=== PATIENT | female | born 1960 | race Caucasian/White ===

== ENCOUNTER 2017-10-09 19:24 | Emergency (ER) | payer OTHER ==
[~2017-10-09] VITALS: Ht 157.5 cm; Wt 109.1 kg
[2017-10-09 19:35] VITALS: TEMP 36.7; Ht 157.5 cm; Wt 109.1 kg
[2017-10-09] MEDS ORDERED: FENTANYL CITRATE INJ 50 MCG/1 ML 2 ML VIAL IV STA (19:43)
[2017-10-09] MEDS ORDERED: SODIUM CHLORIDE 0.9% 1000ML 1,000 ML IV STA (19:43)
[2017-10-09] MEDS ORDERED: KETOROLAC TROMETHAMINE 30 MG/ML VIAL IV STA (19:43)
--- NOTE | 2017-10-09 19:59 | EMERGENCY ROOM VISIT NOTE ---
History Report prepared by Buck: Luis Felipe Fuentes Under the Supervision of: Dr. Antoni Rincon M.D. First contact with patient: 19:36 Chief Complaint: KIDNEY STONE Stated Complaint: KIDNEY STONE History of Present Illness The patient is a 57 year old female who presents to the Emergency Room with complaints of worsening right sided flank pain starting about a week ago. She rates her discomfort as a 9/10 in severity. The patient states that she has a history of kidney stones, and she called her doctor, and they told her to come to the ED for evaluation. She is additionally complaining of nausea and vomiting. The patient denies any hematuria, burning with urination, fevers, and chills. She is not currently on any blood thinners. Source of History: patient Onset: a week ago Position: other (right flank) Symptom Intensity: 9/10 Timing: worsening Associated Symptoms: + nausea, + vomiting, No fevers, No chills, No urinary symptoms Review of Systems See HPI for pertinent positives and negatives. A total of ten systems were reviewed and were otherwise negative. Past Medical & Surgical Medical Problems: (1) Kidney stone (2) Urinary problem Family History Cancer Diabetes mellitus Heart disease Hypertension Kidney disease Social History Smoking Status: Never Smoker Alcohol Use: none Marital Status: Housing Status: lives with significant other Occupation Status: employed Current/Historical Medications No Active Prescriptions or Reported Meds Allergies Coded Allergies: No Known Allergies (Verified , NONE, 10/04/16) Physical Exam Vital Signs Date Time Temp Pulse Resp B/P (MAP) Pulse Ox O2 Delivery O2 Flow Rate FiO2 10/09/17 22:07 72 15 95 10/09/17 22:01 137/64 10/09/17 21:52 75 17 97 10/09/17 21:37 65 16 95 10/09/17 21:30 144/82 10/09/17 21:22 76 13 94 10/09/17 21:14 149/101 10/09/17 20:52 83 17 95 10/09/17 20:37 74 17 94 10/09/17 20:31 142/86 10/09/17 20:22 70 94 10/09/17 20:17 153/83 10/09/17 20:15 77 10/09/17 20:09 78 19 97 Room Air 10/09/17 20:04 157/89 10/09/17 19:35 36.7 88 20 174/106 97 Room Air Physical Exam GENERAL: Awake, alert, well-appearing, in no distress HENT: Normocephalic, atraumatic. Oropharynx unremarkable. EYES: Normal conjunctiva. Sclera non-icteric. NECK: Supple. No nuchal rigidity. FROM. No JVD. RESPIRATORY: Clear to auscultation. CARDIAC: Regular rate, normal rhythm. Extremities warm and well perfused. Pulses equal. ABDOMEN: Soft, non-distended. No tenderness to palpation. No rebound or guarding. No masses. RECTAL: Deferred. MUSCULOSKELETAL: There is mild right CVA and right flank tenderness. No peritoneal signs. Chest examination reveals no tenderness. The back is symmetrical on inspection without obvious abnormality. No joint edema. LOWER EXTREMITIES: Calves are equal size bilaterally and non-tender. No edema. No discoloration. NEURO: Normal sensorium. No sensory or motor deficits noted. SKIN: No rash or jaundice noted. Medical Decision & Procedures ER Provider Diagnostic Interpretation: Radiology results as stated below per my review and radiologist interpretation: ABD/PELVIS IV CONTRAST ONLY CLINICAL HISTORY: 57 years-old Female presenting with Flank pain. TECHNIQUE: Multidetector CT of the abdomen and pelvis was performed after the administration of intravenous contrast. IV contrast: 116 mL of Optiray 320. A dose lowering technique was used consistent with the principles of ALARA (as low as reasonably achievable). COMPARISON: 06/03/2009. CT DOSE (mGy.cm): The estimated cumulative dose is 1256.83 mGy.cm. 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 Lung bases: Minimal dependent changes likely atelectasis. Normal heart size. No pericardial or pleural effusion. Liver: Normal morphology. Severe hepatic steatosis. No focal lesion. Patent hepatic vasculature. Biliary: No intrahepatic or extrahepatic biliary ductal dilatation. Gallbladder surgically absent. Pancreas: Normal. Spleen: Normal. Adrenal glands: Normal. Kidneys and ureters: Normal. No hydronephrosis. Bladder: Incompletely evaluated secondary to underdistention. Pelvic organs: Uterus surgically absent. Bowel: Appendix surgically absent. No bowel obstruction. Peritoneal cavity: No free fluid or intraperitoneal gas. Lymph nodes: No enlarged lymph nodes in the abdomen or pelvis. Vasculature: Aorta and IVC patent and normal in caliber. Abdominal wall: Normal. Musculoskeletal: Degenerative changes of the spine. IMPRESSION: 1. Severe hepatic steatosis. Correlate with liver function tests to exclude steatohepatitis as a cause for abdominal pain. Electronically signed by: Emre Abbott M.D. 10/09/2017 9:12 PM Dictated Date/Time: 10/09/2017 9:05 PM Laboratory Results 10/09/17 19:58 Red Blood Count 5.43, Mean Corpuscular Volume 82.5, Mean Corpuscular Hemoglobin 28.5, Mean Corpuscular Hemoglobin Concent 34.6, Mean Platelet Volume 10.6, Neutrophils (%) (Auto) 57.2, Lymphocytes (%) (Auto) 34.3, Monocytes (%) (Auto) 5.4, Eosinophils (%) (Auto) 2.1, Basophils (%) (Auto) 0.4, Neutrophils # (Auto) 4.73, Lymphocytes # (Auto) 2.83, Monocytes # (Auto) 0.45, Eosinophils # (Auto) 0.17, Basophils # (Auto) 0.03 10/09/17 19:58 Test 10/09/17 19:50 10/09/17 19:58 Urine Color YELLOW Urine Appearance CLEAR (CLEAR) Urine pH 5.0 (4.5-7.5) Urine Specific [place] 1.044 (1.000-1.030) Urine Protein NEG (NEG) Urine Glucose (UA) 3+ (NEG) Urine Ketones NEG (NEG) Urine Occult Blood NEG (NEG) Urine Nitrite NEG (NEG) Urine Bilirubin NEG (NEG) Urine Urobilinogen NEG (NEG) Urine Leukocyte Esterase NEG (NEG) White Blood Count 8.26 K/uL (4.8-10.8) Red Blood Count 5.43 M/uL (4.2-5.4) Hemoglobin 15.5 g/dL (12.0-16.0) Hematocrit 44.8 % (37-47) Mean Corpuscular Volume 82.5 fL (80-100) Mean Corpuscular Hemoglobin 28.5 pg (25-34) Mean Corpuscular Hemoglobin Concent 34.6 g/dl (32-36) Platelet Count 207 K/uL (130-400) Mean Platelet Volume 10.6 fL (7.4-10.4) Neutrophils (%) (Auto) 57.2 % Lymphocytes (%) (Auto) 34.3 % Monocytes (%) (Auto) 5.4 % Eosinophils (%) (Auto) 2.1 % Basophils (%) (Auto) 0.4 % Neutrophils # (Auto) 4.73 K/uL (1.4-6.5) Lymphocytes # (Auto) 2.83 K/uL (1.2-3.4) Monocytes # (Auto) 0.45 K/uL (0.11-0.59) Eosinophils # (Auto) 0.17 K/uL (0-0.5) Basophils # (Auto) 0.03 K/uL (0-0.2) RDW Standard Deviation 37.6 fL (36.4-46.3) RDW Coefficient of Variation 12.5 % (11.5-14.5) Immature Granulocyte % (Auto) 0.6 % Immature Granulocyte # (Auto) 0.05 K/uL (0.00-0.02) Anion Gap 12.0 mmol/L (3-11) Est Creatinine Clear Calc Drug Dose 72.4 ml/min Estimated GFR () 72.1 Estimated GFR (Non- 62.2 BUN/Creatinine Ratio 9.6 (10-20) Calcium Level 9.6 mg/dl (8.5-10.1) Total Bilirubin 0.4 mg/dl (0.2-1) Direct Bilirubin < 0.1 mg/dl (0-0.2) Aspartate Amino Transf (AST/SGOT) 32 U/L (15-37) Alanine Aminotransferase (ALT/SGPT) 57 U/L (12-78) Alkaline Phosphatase 178 U/L (45-117) Total Protein 7.8 gm/dl (6.4-8.2) Albumin 3.6 gm/dl (3.4-5.0) Lipase 203 U/L (73-393) Beta-Hydroxybutyric Acid 1.13 mg/dL (0.2-2.81) Laboratory results reviewed by me Medications Administered Medications (Trade) Dose Ordered Sig/Carlos Route Start Time Stop Time Status Last Admin Dose Admin Sodium Chloride 1,000 ml @ 999 mls/hr Q1H1M STAT IV 10/09/17 19:43 10/09/17 20:43 DC 10/09/17 20:04 999 MLS/HR Ketorolac Tromethamine (Toradol Inj) 30 mg NOW STAT IV 10/09/17 19:43 10/09/17 19:52 DC 10/09/17 20:14 30 MG Fentanyl Citrate (Fentanyl Inj) 50 mcg NOW STAT IV 10/09/17 19:43 10/09/17 19:52 DC 10/09/17 20:17 50 MCG Morphine Sulfate (MoRPHine SULFATE INJ) 4 mg NOW STAT IV 10/09/17 21:14 10/09/17 21:15 DC 10/09/17 21:21 4 MG Ondansetron HCl (Zofran Inj) 4 mg NOW STAT IV 10/09/17 21:14 10/09/17 21:15 DC 10/09/17 21:20 4 MG ED Course 1935: The patient was evaluated in room B2. A complete history and physical exam was performed. 1942: Fentanyl 50mcg IV, Toradol 30mg IV, Sodium Chloride 1000 ml @ 999 mls/hr IV 2116: Zofran 4mg IV, Morphine Sulfate 4mg IV 2134: I reevaluated the patient. Discussed results and discharge instructions: She verbalized understanding and agreement. The patient is ready for discharge. Medical Decision I reviewed the patient's past medical history, medications, and the nursing notes as described above. Differential diagnoses include: kidney stone, UTI, pyelonephritis, biliary etiology, muscular strain. The patient is a 57-year-old woman with a past medical history of recurrent kidney stones who presents emergency Department with persistent right flank pain for the past week per history of present illness. Arrival the patient is well-appearing, afebrile with stable vital signs. She is mild right flank and CVA tenderness. Abd soft, NT/ND without peritoneal signs. Labs notable for elevated glucose 2 the 300s but otherwise unremarkable with WBC within normal limits. CT scan negative for renal stones or evidence thereof such as hydro-or ureter nephrosis. There is hepato-steatosis however patient's LFTs are unremarkable. I discussed the patient's abnormally elevated glucose and she says she has not seen a PCP in 5 years. We will order a hemoglobin A1c and help to arrange prompt PCP establishment. CM assisting and will call [facility] tomorrow. Findings and plan for follow-up reviewed with patient. Patient agreeable and d/c'd per discharge instructions. Medication Reconcilliation Current Medication List: was personally reviewed by me Blood Pressure Screening Patient's blood pressure: Elevated blood pressure Blood pressure disposition: Elevated BP felt to be situational Impression Primary Impression: Right flank pain Additional Impression: Hyperglycemia Scribe Attestation The scribe's documentation has been prepared under my direction and personally reviewed by me in its entirety. I confirm that the note above accurately reflects all work, treatment, procedures, and medical decision making performed by me. Departure Information Dispostion Home / Self-Care Prescriptions No Active Prescriptions or Reported Meds Referrals Roberto Carlos Suero PA-C (PCP) Forms HOME CARE DOCUMENTATION FORM, IMPORTANT VISIT INFORMATION Patient Instructions Diabetes Activity Tips, Diabetes Carbs, ED Hyperglycemia New Susp Diabetes, My [facility] Additional Instructions Please follow up with and establish a primary care physician in the next week for re-evaluation and testing for your elevated sugar (glucose) that is suspicious for undiagnosed diabetes. The cause of you flank pain is unclear at this time. Otherwise, your exam, CT scan, and lab results did not show signs of an emergent condition at this time. A hemoglobin A1C was sent and will result tomorrow that will help inform your doctor regarding possible diabetes management. Return to the emergency department for worsening symptoms as described in the accompanying instructions. Problem Qualifiers
[2017-10-09 20:04] LABS: URINE APPEARANCE CLEAR (CLEAR); URINE BILIRUBIN NEG (NEG); URINE COLOR YELLOW; URINE NITRITE NEG (NEG); URINE SPECIFIC GRAVITY 1.044 (1.000-1.030); UROBILINOGEN NEG (NEG); ZZUR CULT IF INDIC CLEAN CATCH NO
[2017-10-09 20:06] LABS: BASO % 0.4 %; BASO ABS # 0.03 K/uL (0-0.2); COMPLETE YES; EOS % 2.1 %; HEMATOCRIT 44.8 % (37-47); IG% 0.6 %; LYMPH % 34.3 %; LYMPH ABS # 2.83 K/uL (1.2-3.4); MEAN CELL VOLUME 82.5 fL (80-100); MEAN CORPUSCULAR HEMOGLOBIN 28.5 pg (25-34); MEAN CORPUSCULAR HGB CONC 34.6 g/dl (32-36); MEAN PLATELET VOLUME 10.6 fL (7.4-10.4); MONO % 5.4 %; NEUT % 57.2 %; PLATELET COUNT 207 K/uL (130-400); RED BLOOD COUNT 5.43 M/uL (4.2-5.4); WHITE BLOOD COUNT 8.26 K/uL (4.8-10.8)
[2017-10-09 20:10] LABS: MANUAL MICROSCOPIC REQUIRED? NO; REVIEW REQ? NO
[2017-10-09 20:45] LABS: ALKALINE PHOSPHATASE 178 U/L (45-117); ALT/SGPT 57 U/L (12-78); BLOOD UREA NITROGEN 10 mg/dl (7-18); BUN/CREATININE RATIO 9.6 (10-20); CALCIUM 9.6 mg/dl (8.5-10.1); CARBON DIOXIDE 25 mmol/L (21-32); CHLORIDE 100 mmol/L (98-107); CREATININE 1.01 mg/dl (0.60-1.20); POTASSIUM 4.1 mmol/L (3.5-5.1); SODIUM 137 mmol/L (136-145)
[2017-10-09 20:52] LABS: GLUCOSE 371 mg/dl (70-99)
[2017-10-09 20:53] LABS: AST/SGOT 32 U/L (15-37)
--- NOTE | 2017-10-09 21:13 | DIAGNOSTIC IMAGING REPORT ---
ABD/PELVIS IV CONTRAST ONLY CLINICAL HISTORY: 57 years-old Female presenting with Flank pain. TECHNIQUE: Multidetector CT of the abdomen and pelvis was performed after the administration of intravenous contrast. IV contrast: 116 mL of Optiray 320. A dose lowering technique was used consistent with the principles of ALARA (as low as reasonably achievable). COMPARISON: 06/03/2009. CT DOSE (mGy.cm): The estimated cumulative dose is 1256.83 mGy.cm. 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 Lung bases: Minimal dependent changes likely atelectasis. Normal heart size. No pericardial or pleural effusion. Liver: Normal morphology. Severe hepatic steatosis. No focal lesion. Patent hepatic vasculature. Biliary: No intrahepatic or extrahepatic biliary ductal dilatation. Gallbladder surgically absent. Pancreas: Normal. Spleen: Normal. Adrenal glands: Normal. Kidneys and ureters: Normal. No hydronephrosis. Bladder: Incompletely evaluated secondary to underdistention. Pelvic organs: Uterus surgically absent. Bowel: Appendix surgically absent. No bowel obstruction. Peritoneal cavity: No free fluid or intraperitoneal gas. Lymph nodes: No enlarged lymph nodes in the abdomen or pelvis. Vasculature: Aorta and IVC patent and normal in caliber. Abdominal wall: Normal. Musculoskeletal: Degenerative changes of the spine. IMPRESSION: 1. Severe hepatic steatosis. Correlate with liver function tests to exclude steatohepatitis as a cause for abdominal pain. Electronically signed by: Emre Abbott M.D. 10/09/2017 9:12 PM Dictated Date/Time: 10/09/2017 9:05 PM
[2017-10-09 21:14] LABS: BETA-HYDROXYBUTYRATE 1.13 mg/dL (0.2-2.81)
[2017-10-09] MEDS ORDERED: MoRPHine SULFATE 4 MG/ML 1 ML CARP\\VIAL IV STA (21:14)
[2017-10-09] MEDS ORDERED: ONDANSETRON INJ 2 MG/ML 2 ML VIAL IV STA (21:14)
[2017-10-09 22:01] VITALS: BP 137/64
[2017-10-09 22:07] VITALS: PULSE 72; O2SAT 95
[2017-10-10 06:25] LABS: ESTIMATED AVERAGE GLUCOSE 306 mg/dl; HA1C FLAG Normal (Normal)
== END 2017-10-09 22:22 | disposition home or self-care (01) ==
LOC: C.EDB 19:25 → C.EDC 22:22
DX: R10.9 Unspecified abdominal pain (principal); R73.9 Hyperglycemia, unspecified; R11.2 Nausea with vomiting, unspecified; Z87.442 Personal history of urinary calculi; Z87.448 Personal history of other diseases of urinary system; Z82.49 Family history of ischemic heart disease and other diseases of the circulatory system; Z83.3 Family history of diabetes mellitus; Z84.1 Family history of disorders of kidney and ureter

== ENCOUNTER → 2017-11-27 | Outpatient (CLI) | payer OTHER ==
[~2017-11-27] MED LIST: AMOX875T PO; ATOR-22 PO; CHOL2000 PO; FURO-85 PO; HYDR25TA4 PO; INSDGIPEN SC; INSU100I2 SC; LISI10TA PO
[2017-11-27 12:58] LABS: BLOOD UREA NITROGEN 19 mg/dl (7-18); CALCIUM 8.7 mg/dl (8.5-10.1); CARBON DIOXIDE 29 mmol/L (21-32); CHOLESTEROL 208 mg/dl (0-200); CREATININE 0.81 mg/dl (0.60-1.20); GLUCOSE 168 mg/dl (70-99); LDL CHOLESTEROL CALCULATED 134 mg/dl; POTASSIUM 3.8 mmol/L (3.5-5.1); SODIUM 138 mmol/L (136-145)
== END | disposition home or self-care (01) ==
LOC: C.LABPBG 08:03
PROVIDERS: ATTEND Family Medicine
DX: E11.9 Type 2 diabetes mellitus without complications (principal)

== ENCOUNTER 2017-12-04 21:09 | Inpatient (IN) | payer OTHER ==
[~2017-12-04] VITALS: Ht 157.5 cm; Wt 112.0 kg
[2017-12-04] MEDS ORDERED: ASPIRIN 324 MG CHEW PO STA (21:40)
[2017-12-04] MEDS: NITROGLYCERIN 0.4 MG SL PER TAB CHARGE SL PRN ×3 (21:53→22:17)
[2017-12-04] MEDS ORDERED: ATOR-22 PO (21:55)
[2017-12-04] MEDS ORDERED: AMOX875T PO (21:55)
[2017-12-04] MEDS ORDERED: INSDGIPEN SC (21:55)
[2017-12-04] MEDS ORDERED: HYDR25TA4 PO (21:55)
[2017-12-04] MEDS ORDERED: INSU100I2 SC (21:55)
[2017-12-04 22:22] LABS: BASO % 0.3 %; BASO ABS # 0.02 K/uL (0-0.2); EOS % 1.6 %; EOS ABS # 0.13 K/uL (0-0.5); HEMATOCRIT 41.6 % (37-47); HEMOGLOBIN 13.8 g/dL (12.0-16.0); IG# 0.04 K/uL (0.00-0.02); LYMPH % 21.9 %; LYMPH ABS # 1.73 K/uL (1.2-3.4); MEAN CELL VOLUME 84.9 fL (80-100); MEAN CORPUSCULAR HEMOGLOBIN 28.2 pg (25-34); MEAN CORPUSCULAR HGB CONC 33.2 g/dl (32-36); MEAN PLATELET VOLUME 10.7 fL (7.4-10.4); MONO % 9.9 %; MONO ABS # 0.78 K/uL (0.11-0.59); NEUT % 65.8 %; PLATELET COUNT 144 K/uL (130-400); RED CELL DISTRIBUTION WIDTH CV 12.7 % (11.5-14.5); RED CELL DISTRIBUTION WIDTH SD 38.7 fL (36.4-46.3)
--- NOTE | 2017-12-04 22:31 | DIAGNOSTIC IMAGING REPORT ---
CHEST ONE VIEW PORTABLE CLINICAL HISTORY: Atypical chest pain COMPARISON STUDY: No previous studies for comparison. FINDINGS: The cardiac and mediastinal contours are normal. There is no evidence of focal pulmonary consolidation. There is no evidence of failure. No pleural effusions are visualized.[ IMPRESSION: No active disease in the chest. Electronically signed by: Seth Zaragoza M.D. 12/04/2017 10:30 PM Dictated Date/Time: 12/04/2017 10:30 PM
[2017-12-04 22:48] LABS: ALBUMIN 3.6 gm/dl (3.4-5.0); ALT/SGPT 38 U/L (12-78); BLOOD UREA NITROGEN 20 mg/dl (7-18); CALCIUM 9.4 mg/dl (8.5-10.1); CARBON DIOXIDE 29 mmol/L (21-32); GLUCOSE 110 mg/dl (70-99); LIPASE 260 U/L (73-393); POTASSIUM 3.4 mmol/L (3.5-5.1); SODIUM 137 mmol/L (136-145)
[2017-12-04 22:53] LABS: ALKALINE PHOSPHATASE 103 U/L (45-117); AST/SGOT 24 U/L (15-37); TOTAL PROTEIN 7.7 gm/dl (6.4-8.2)
[2017-12-04] MEDS ORDERED: OPTIRAY 320 IV PRN (23:00)
[2017-12-04] MEDS ORDERED: ACETAMINOPHEN 500 MG TAB PO STA (23:15)
[2017-12-05] MEDS ORDERED: NITROGLYCERIN OINT 2% 1GM PACKET EXT ONE (01:15)
[2017-12-05] MEDS ORDERED: ACETAMINOPHEN 325 MG TAB PO PRN (03:00)
[2017-12-05] MEDS ORDERED: DEXTROSE 50% 50 ML SYR IV PRN (03:00)
[2017-12-05] MEDS ORDERED: NITROGLYCERIN 0.4 MG SL PER TAB CHARGE SL PRN (03:00)
[2017-12-05] MEDS ORDERED: GLUCOSE 40% GEL 15 GM TUBE PO PRN (03:00)
[2017-12-05] MEDS ORDERED: ONDANSETRON INJ 2 MG/ML 2 ML VIAL IV PRN (03:00)
[2017-12-05] MEDS ORDERED: GLUCAGON FOR INJ 1 MG VIAL SQ PRN (03:00)
[2017-12-05] MEDS ORDERED: GLUCOSE 10 TABS/TUBE PO PRN (03:00)
[2017-12-05 04:01] VITALS: BP 136/89; PULSE 108; TEMP 36.5; O2SAT 94; Ht 157.5 cm; Wt 112.0 kg
--- NOTE | 2017-12-05 04:09 | History and Physical ---
History & Physical Date & Time of Service: Dec 05, 2017 at 03:57 Chief Complaint: Chest Pain Primary Care Physician: Kaylan Suero DO History of Present Illness Source: patient, hospital records Patient is a 57 year old female with a past medical history of diabetes, hypertension, and hyperlipidemia that presents with chest pain. The patient stated she was having a substernal pressure like sensation that began when sitting at work at 12pm. She states it was initially 3-4/10 but continued to progress. It began to radiate to her interscapular region, neck, and left arm. The pain continued to progress until she came into the emergency department. She received 3 doses of nitroglycerin at which time her pain resolved. She states her pain at tis time is a 3/10 and is worsened with palpation although is no longer having radiation. She currently complains of a headache after the NTG. She denies any shortness of breath, fevers, chills, abdominal pain, or palpitations at this time. Past Medical/Surgical History Medical Problems: (1) Kidney stone Status: Chronic (2) Urinary problem Status: Chronic Family History Cancer Diabetes mellitus Heart disease Hypertension Kidney disease Social History Smoking Status: Unknown if Ever Smoked Smokeless Tobacco Use: No Alcohol Use: none Drug Use: none Marital Status: Housing status: lives with family Occupational Status: employed Immunizations History of Influenza Vaccine: N/A History of Tetanus Vaccine?: Yes Tetanus Immunization Date: Jun 04, 2007 History of Pneumococcal: No History of Hepatitis B Vaccine: Unknown Multi-Drug Resistant Organisms History of MDRO: No Allergies Coded Allergies: Eggs or Egg-derived Products (Verified Allergy, Severe, HIVES, 12/05/17) As stated by patient Home Medications Scheduled Amoxicillin & Pot Clavulanate (Augmentin 875-125 mg), 1 TAB PO Q12 Atorvastatin (Lipitor), 20 MG PO DAILY Hydrochlorothiazide (Hctz), 25 MG PO DAILY Insulin Glargine (Lantus Solostar), 30 UNITS SC AMPM Insulin Lispro (Human) (Humalog Kwikpen), 1 DOSE SC AC Review of Systems Constitutional: No fever, No chills, No sweats, No weight loss, No fatigue ENT: No sore throat Respiratory: No cough, No wheezing, No shortness of breath Cardiovascular: + chest pain, No orthopnea, No PND, No edema, No palpitations Abdomen: No pain, No nausea, No vomiting, No diarrhea, No constipation Genitourinary - Female: No dysuria Endocrine: No fatigue Physical Exam Vital Signs Date Time Temp Pulse Resp B/P (MAP) Pulse Ox O2 Delivery O2 Flow Rate FiO2 12/05/17 03:00 100 20 126/83 95 12/05/17 02:15 85 16 95/52 93 Room Air 12/05/17 01:39 81 12/05/17 00:47 94 16 142/77 93 Room Air 12/04/17 23:46 90 16 153/93 96 Room Air 12/04/17 22:15 93 Room Air 12/04/17 22:11 93 Room Air 12/04/17 22:09 120 19 92 12/04/17 22:02 109 12/04/17 22:01 134/95 12/04/17 21:58 145/94 12/04/17 21:39 88 22 12/04/17 21:17 36.6 92 19 148/99 98 Room Air General Appearance: WD/WN, no apparent distress Head: normocephalic, atraumatic Eyes: normal inspection, sclerae normal Neck: supple, no carotid bruits Respiratory/Chest: lungs clear, normal breath sounds, + pertinent finding ( tenderness to palpation over the sternal region) Cardiovascular: regular rate, rhythm, no edema, no gallop, no murmur Abdomen/GI: normal bowel sounds, non tender, soft Extremities/Musculoskelatal: no calf tenderness, no pedal edema Neurologic/Psych: alert, normal mood/affect, oriented x 3 Diagnostics Laboratory Results Results Past 24 Hours Test 12/04/17 22:08 12/04/17 22:11 Range/Units White Blood Count 7.90 4.8-10.8 K/uL Red Blood Count 4.90 4.2-5.4 M/uL Hemoglobin 13.8 12.0-16.0 g/dL Hematocrit 41.6 37-47 % Mean Corpuscular Volume 84.9 80-100 fL Mean Corpuscular Hemoglobin 28.2 25-34 pg Mean Corpuscular Hemoglobin Concent 33.2 32-36 g/dl Platelet Count 144 130-400 K/uL Mean Platelet Volume 10.7 7.4-10.4 fL Neutrophils (%) (Auto) 65.8 % Lymphocytes (%) (Auto) 21.9 % Monocytes (%) (Auto) 9.9 % Eosinophils (%) (Auto) 1.6 % Basophils (%) (Auto) 0.3 % Neutrophils # (Auto) 5.20 1.4-6.5 K/uL Lymphocytes # (Auto) 1.73 1.2-3.4 K/uL Monocytes # (Auto) 0.78 0.11-0.59 K/uL Eosinophils # (Auto) 0.13 0-0.5 K/uL Basophils # (Auto) 0.02 0-0.2 K/uL RDW Standard Deviation 38.7 36.4-46.3 fL RDW Coefficient of Variation 12.7 11.5-14.5 % Immature Granulocyte % (Auto) 0.5 % Immature Granulocyte # (Auto) 0.04 0.00-0.02 K/uL Sodium Level 137 136-145 mmol/L Potassium Level 3.4 3.5-5.1 mmol/L Chloride Level 100 98-107 mmol/L Carbon Dioxide Level 29 21-32 mmol/L Anion Gap 9.0 3-11 mmol/L Blood Urea Nitrogen 20 7-18 mg/dl Creatinine 0.80 0.60-1.20 mg/dl Est Creatinine Clear Calc Drug Dose 14.0 ml/min Estimated GFR () 95.5 Estimated GFR (Non- 82.4 BUN/Creatinine Ratio 25.1 10-20 Random Glucose 110 70-99 mg/dl Calcium Level 9.4 8.5-10.1 mg/dl Total Bilirubin 0.5 0.2-1 mg/dl Direct Bilirubin < 0.1 0-0.2 mg/dl Aspartate Amino Transf (AST/SGOT) 24 15-37 U/L Alanine Aminotransferase (ALT/SGPT) 38 12-78 U/L Alkaline Phosphatase 103 45-117 U/L Troponin I < 0.015 0-0.045 ng/ml Total Protein 7.7 6.4-8.2 gm/dl Albumin 3.6 3.4-5.0 gm/dl Lipase 260 73-393 U/L Bedside D-Dimer > 450 0-450 ng/mlFEU Bedside Troponin I < 0.030 0-0.045 ng/ml Impression Assessment and Plan Patient is a 57 year old female with a past medical history of diabetes, hypertension, and hyperlipidemia that presents with chest pain 1) Chest Pain - EKG - NSR with no ST changes --> Repeat in AM - CXR and CTA for PE show no acute cardiopulmonary abnormalities - Troponin < 0.015 --> Repeat q6h x3 - Fasting lipid panel - Echo - Cardiology Consult 2) Diabetes Mellitus - Continue home Lantus - SSI - BSG AC & HS - HbA1c 3) HLD - Fasting Lipids - Continue home statin 4) Hypertension - Continue home HCTZ/ Triamterene 5) DVT - SCDs 6) Code Status - Full Resuscitation Attending addendum: I have physically seen this patient, have supervised the medical residents activities, and agree with the H&P unless as otherwise noted. Assessment and Plan: Precordial chest pain-- The patient will be admitted to telemetry for serial cardiac enzymes, serial EKG's, cardiac rhythm monitoring and a 2-D echocardiogram with Dopplers. CTA of chest was negative for PE Hyperlipidemia-- Fasting lipid panel and continue atorvastatin ex Diabetes mellitus-- Continue Lantus Place on Accu-Cheks before meals and at bedtime with NovoLog coverage per scale Check a hemoglobin A1c Level of Care Telemetry Advanced Directives Existing Advance Directive: No Existing Living Will: No Existing Power of Flower Shop Manager: No Resuscitation Status FULL RESUSCITATION VTE Prophylaxis VTE Risk Assessment Done? Y/N: Yes Risk Level: Moderate Given or contraindicated: SCD's Resident Tracking Resident Involvement: Resident Care Provided Care Provided: Adult Hospital Medicine
[2017-12-05 05:25] LABS: CHOLESTEROL 143 mg/dl (0-200); LDL CHOLESTEROL CALCULATED 77 mg/dl
--- NOTE | 2017-12-05 05:54 | EMERGENCY ROOM VISIT NOTE ---
History First contact with patient: 21:28 Chief Complaint: CHEST PAIN Stated Complaint: CHEST PAIN History of Present Illness The patient is a 57 year old female who presents to the Emergency Room with complaints of left-sided chest pain that radiates to her jaw down her left arm and to her back with mild shortness of breath today since noon that is worse with activity and better with rest. Patient has traveled recently. She has diabetes and high cholesterol and family history of heart disease with the mother having heart disease in her 40s. She's never had a stress test or echo. No injury to the area. She describes the pain as pressure. 8 out of 10. Activity makes it worse and nothing makes it better. Patient denies fever, chills, leg pain or swelling, abdominal pain, nausea, vomiting, diarrhea, diaphoresis. Review of Systems See HPI for pertinent positives & negatives. A total of 10 systems reviewed and were otherwise negative. Past Medical/Surgical History Medical Problems: (1) Chest pain (2) Kidney stone (3) Urinary problem Diabetes, cholecystectomy, hyperlipidemia Family History Cancer Diabetes mellitus Heart disease Hypertension Kidney disease Social History Smoking Status: Never Smoker Alcohol Use: none Drug Use: none Marital Status: Housing Status: lives with significant other Occupation Status: employed Current/Historical Medications Scheduled Amoxicillin & Pot Clavulanate (Augmentin 875-125 mg), 1 TAB PO Q12 Atorvastatin (Lipitor), 20 MG PO DAILY Hydrochlorothiazide (Hctz), 25 MG PO DAILY Insulin Glargine (Lantus Solostar), 30 UNITS SC AMPM Insulin Lispro (Human) (Humalog Kwikpen), 1 DOSE SC AC Physical Exam Vital Signs Date Time Temp Pulse Resp B/P (MAP) Pulse Ox O2 Delivery O2 Flow Rate FiO2 12/05/17 03:00 100 20 126/83 95 12/05/17 02:15 85 16 95/52 93 Room Air 12/05/17 01:39 81 12/05/17 00:47 94 16 142/77 93 Room Air 12/04/17 23:46 90 16 153/93 96 Room Air 12/04/17 22:15 93 Room Air 12/04/17 22:11 93 Room Air 12/04/17 22:09 120 19 92 12/04/17 22:02 109 12/04/17 22:01 134/95 12/04/17 21:58 145/94 12/04/17 21:39 88 22 12/04/17 21:17 36.6 92 19 148/99 98 Room Air Physical Exam VITALS: Vitals are noted on the nurse's note and reviewed by myself. Vital signs stable. GENERAL: Pleasant female, in no acute distress, nondiaphoretic, well-developed well-nourished. SKIN: The skin was without rashes, erythema, edema, or bruising. There is no tenting of the skin. Capillary reflex less than 2 seconds. HEAD: Normocephalic atraumatic. EARS: External auditory canals clear, tympanic membranes pearly atkins without erythema or effusion bilaterally. EYES: Pupils equal round and reactive to light and accommodation. Conjunctivae without injection, sclerae without icterus. Extraocular movements intact. NOSE: Patent, turbinates without inflammation or discharge. MOUTH: Mucous membranes moist. Pharynx without erythema or exudate. Uvula midline. Airway patent. Tongue does not deviate. NECK: Supple without nuchal rigidity. No lymphadenopathy. No thyromegaly. Cervical spine is nontender. No JVD. HEART: Regular rate and rhythm without murmurs gallops or rubs. Chest nontender to patient LUNGS: Clear to auscultation bilaterally without wheezes, rales or rhonchi. No dullness to percussion. No retractions or accessory muscle use. ABDOMEN: Positive bowel sounds x 4. Normal tympanic percussion. Soft, protuberant, obese, nontender, without masses or organomegaly. Rosas sign negative. No guarding or rebound tenderness. MUSCULOSKELETAL: No muscle atrophy, erythema, or edema noted. NEURO: Patient was alert and oriented to person place and time. Normal sensation to light and sharp touch. No focal neurological deficits. Medical Decision & Procedures Laboratory Results 12/04/17 22:08 Red Blood Count 4.90, Mean Corpuscular Volume 84.9, Mean Corpuscular Hemoglobin 28.2, Mean Corpuscular Hemoglobin Concent 33.2, Mean Platelet Volume 10.7, Neutrophils (%) (Auto) 65.8, Lymphocytes (%) (Auto) 21.9, Monocytes (%) (Auto) 9.9, Eosinophils (%) (Auto) 1.6, Basophils (%) (Auto) 0.3, Neutrophils # (Auto) 5.20, Lymphocytes # (Auto) 1.73, Monocytes # (Auto) 0.78, Eosinophils # (Auto) 0.13, Basophils # (Auto) 0.02 12/04/17 22:08 Test 12/04/17 22:08 12/04/17 22:11 12/05/17 02:55 White Blood Count 7.90 K/uL (4.8-10.8) Red Blood Count 4.90 M/uL (4.2-5.4) Hemoglobin 13.8 g/dL (12.0-16.0) Hematocrit 41.6 % (37-47) Mean Corpuscular Volume 84.9 fL (80-100) Mean Corpuscular Hemoglobin 28.2 pg (25-34) Mean Corpuscular Hemoglobin Concent 33.2 g/dl (32-36) Platelet Count 144 K/uL (130-400) Mean Platelet Volume 10.7 fL (7.4-10.4) Neutrophils (%) (Auto) 65.8 % Lymphocytes (%) (Auto) 21.9 % Monocytes (%) (Auto) 9.9 % Eosinophils (%) (Auto) 1.6 % Basophils (%) (Auto) 0.3 % Neutrophils # (Auto) 5.20 K/uL (1.4-6.5) Lymphocytes # (Auto) 1.73 K/uL (1.2-3.4) Monocytes # (Auto) 0.78 K/uL (0.11-0.59) Eosinophils # (Auto) 0.13 K/uL (0-0.5) Basophils # (Auto) 0.02 K/uL (0-0.2) RDW Standard Deviation 38.7 fL (36.4-46.3) RDW Coefficient of Variation 12.7 % (11.5-14.5) Immature Granulocyte % (Auto) 0.5 % Immature Granulocyte # (Auto) 0.04 K/uL (0.00-0.02) Anion Gap 9.0 mmol/L (3-11) Est Creatinine Clear Calc Drug Dose 14.0 ml/min Estimated GFR () 95.5 Estimated GFR (Non- 82.4 BUN/Creatinine Ratio 25.1 (10-20) Calcium Level 9.4 mg/dl (8.5-10.1) Total Bilirubin 0.5 mg/dl (0.2-1) Direct Bilirubin < 0.1 mg/dl (0-0.2) Aspartate Amino Transf (AST/SGOT) 24 U/L (15-37) Alanine Aminotransferase (ALT/SGPT) 38 U/L (12-78) Alkaline Phosphatase 103 U/L (45-117) Total Protein 7.7 gm/dl (6.4-8.2) Albumin 3.6 gm/dl (3.4-5.0) Lipase 260 U/L (73-393) Bedside D-Dimer > 450 ng/mlFEU (0-450) Bedside Troponin I < 0.030 ng/ml (0-0.045) Bedside Glucose 133 mg/dl (70-90) Medications Administered Medications (Trade) Dose Ordered Sig/Carlos Route Start Time Stop Time Status Last Admin Dose Admin Aspirin (Aspirin Chew) 324 mg NOW STAT PO 12/04/17 21:40 12/04/17 21:42 DC 12/04/17 21:52 324 MG Nitroglycerin (Nitrostat Tab) 0.4 mg Q5M PRN SL 12/04/17 21:45 12/05/17 04:04 DC 12/04/17 22:17 0.4 MG Acetaminophen (Tylenol Tab) 1,000 mg NOW STAT PO 12/04/17 23:15 12/04/17 23:17 DC 12/04/17 23:46 1,000 MG ED Course Prior records/ancillary studies reviewed. Triage Nursing notes reviewed. Additional history obtained from family. The patient's history was concerning for chest pain. Differential diagnosis: Etiologies such as cardiac ischemia, aortic dissection, pulmonary embolism, pneumonia, pneumothorax, musculoskeletal, infections, pericarditis, myocarditis , esophageal rupture, gastrointestinal, as well as others were entertained. Physical examination: As above. ER treatment provided: Aspirin, nitroglycerin. Patient's pain improved and nitro paste was placed On reassessment the patient felt better. Diagnostic interpretation by me: The electrocardiogram was negative for pathologic change. Normal sinus, normal intervals, no acute ST-T wave changes. Impression normal sinus rhythm interpreted by myself The labs revealed negative troponin. Elevated d-dimer Imaging studies: Chest x-ray with no acute consolidation, pneumothorax or free air per my interpretation CTA is negative for PE per radiology Consultation: A consultation was placed with the hospitalist, Dr. Shelby. The case was discussed and diagnostics were reviewed. The patient was evaluated in the ER for further treatment. Exam and history seem consistent with chest pain could be cardiac in etiology. Patient has multiple risk factors such as diabetes, high cholesterol and family history. She's had no prior heart testing. She is morbidly obese. CTA was negative. D-dimer is elevated and she traveled recently. Patient was pain- free after the nitroglycerin and paste was applied. She developed a headache was given Tylenol. She will be evaluated by medicine. By the evaluation outlined above emergent etiologies such as aortic dissection , pulmonary embolism, pneumonia, pneumothorax, infections, pericarditis, myocarditis, gastrointestinal, as well as others were deemed relatively unlikely. The pt informed about the findings as listed above. All questions were answered and pleased with the treatment. Case reviewed with my attending The chart was completed utilizing [employer] Speech voice recognition software. Grammatical errors, random word insertions, pronoun errors, and incomplete sentences are an occassional consequence of this system due to software limitations, ambient noise, and hardware issues. Any formal questions or concerns about the content, text, or information contained within the body of this dictation should be directly addressed to the physician surveyor's assistant for clarification. Medical Decision As above Medication Reconcilliation Current Medication List: was personally reviewed by me Blood Pressure Screening Patient's blood pressure: Normal blood pressure Impression Primary Impression: Substernal precordial chest pain Departure Information Dispostion Still a Patient Condition FAIR Referrals Kaylan Suero DO (PCP) Forms Call Back Authorization, HOME CARE DOCUMENTATION FORM, IMPORTANT VISIT INFORMATION Patient Instructions [facility]
[2017-12-05] MEDS ORDERED: INSULIN ASPART 100 UNITS/ML 3 ML PEN SC SCH (07:00)
--- NOTE | 2017-12-05 07:27 | DIAGNOSTIC IMAGING REPORT ---
CT ANGIOGRAM OF THE CHEST CLINICAL HISTORY: Atypical chest pain. COMPARISON STUDY: Chest CT dated 06/18/2009. TECHNIQUE: Following the IV administration of 95 cc of Optiray 320, CT angiogram of the chest was performed from the upper abdomen to the thoracic inlet utilizing the pulmonary embolus protocol. Images are reviewed in the axial, sagittal, and coronal planes. 3-D MIPS images are created and assessed. IV contrast was administered without complication. A dose lowering technique was utilized adhering to the principles of ALARA. CT DOSE: 678.71 mGy.cm FINDINGS: Thyroid: Imaged portions of the thyroid gland are normal in size and attenuation. Thoracic aorta: The thoracic aorta is normal in caliber and demonstrates standard 3-vessel arch anatomy. No dissection is seen. Pulmonary vasculature: The pulmonary trunk is normal in caliber. There are no filling defects identified in main, lobar, or segmental pulmonary branches to suggest pulmonary embolus. Heart: The heart is top normal in size and without pericardial effusion. There are scattered coronary artery calcifications. Lungs and pleural spaces: There is no airspace consolidation or pleural effusion. Scattered calcified granulomas are identified. The trachea and central airways are clear. Mediastinum: There is no mediastinal lymphadenopathy. Charmaine: Clear. Axillae: There are shotty axillary lymph nodes. Upper abdomen: Cholecystectomy clips are noted. There is evidence of hepatic steatosis. A small hiatal hernia is identified. The spleen is mildly enlarged, measuring over 13 cm in length. Skeletal structures: No lytic or blastic bony lesions are seen. A bone island is again seen within the left pedicle of T12. IMPRESSION: 1. There is no evidence of pulmonary embolus in the main, lobar, or segmental pulmonary arteries. 2. The lungs are clear. 3. Hepatic steatosis. Electronically signed by: Martínez Davis M.D. 12/05/2017 7:26 AM Dictated Date/Time: 12/05/2017 7:22 AM
[2017-12-05] MEDS ORDERED: AMOXICILLIN/CLAVULANATE TAB 875 MG TAB PO SCH (07:30)
[2017-12-05 07:33] VITALS: BP 122/76; PULSE 79; TEMP 36.6; O2SAT 95
[2017-12-05 08:00] VITALS: O2SAT 95
[2017-12-05] MEDS ORDERED: ATORVASTATIN 20 MG TAB PO SCH (09:00)
[2017-12-05] MEDS ORDERED: HYDROCHLOROTHIAZIDE 25 MG TAB PO SCH (09:00)
[2017-12-05] MEDS ORDERED: INSULIN GLARGINE SOLOSTAR 100 UNITS/ML 3 ML PEN SC SCH (09:00)
--- NOTE | 2017-12-05 10:27 | Cardiology Consultation ---
Cardiology Consultation Date of Consultation: Dec 05, 2017. Reason for Consultation: chest pain, FHx of heart problems Pt evaluation today including: conversation w/ patient, physical exam, chart review, lab review, review of studies, review of inpatient medication list, conversation w/ attending History of Present Illness Mrs. Lantigua is a pleasant 57 year old female with significant PMH of hypertension, DM type 2, and dyslipidemia presented to [facility] ED yesterday evening with chest pain. The patient says yesterday was the first time that she experienced chest pain. She rates her chest pain as a 10/10 and describes it as a sensation of chest tightness/ chest pressure radiates to her neck, interscapular, and down her left arm. Her chest pain started yesterday morning and progressively worsened throughout the day. After dinner, her chest pain caused her SOB and PAYTON, which prompted her to seek medical help at [facility] ED. She did not experience any nausea, vomiting, diaphoresis, fever, chill since the onset of her chest pain. After giving 3 doses of Nitroglycerin in the ED, her chest pain got better but she still feels pain along the left sternal border. Her pain is reproducible upon palpating the left sternal border and with taking deep breaths, but it doesn't cause her any pain upon exertion and she rates her pain now as a 3/10. The patient denies SOB, PAYTON, orthopnea, PND, muscle weakness, paresthesia, syncope, dizziness, lightheadedness, lower extremity edema. She denies a history of smoking, drinking, and illicit drug use. She did not experience any changes in her functional capacity. She does not exercise daily since her job is physically intensive. She does not experience any SOB with walking uphills or using the stairs. She denies any recent history of long traveling. In term of FHx, her mother experienced a heart attack at the age of 45. Family History Cancer Diabetes mellitus Heart disease Hypertension Kidney disease Social History Smoking Status: Never Smoker History of Alcohol Use: No Review of Systems Constitutional: + see HPI Respiratory: + see HPI, No cough, No sputum, No wheezing, No shortness of breath, No dyspnea on exertion, No dyspnea at rest, No hemoptysis, No problem reported Cardiac: + chest pain (pleuritic chest pain. Reproducible when palpating the left sternal border. ), + edema (dependent pitting edema in both feet. ) Abdomen: No see HPI, No pain, No nausea, No vomiting, No diarrhea, No constipation, No GI bleeding, No problem reported Female : No see HPI, No dysuria, No urinary frequency, No hematuria, No incontinence, No abnormal vaginal bleeding, No vaginal discharge, No problem reported Neurologic: No see HPI, No memory loss, No paralysis, No weakness, No numbness/ tingling, No vertigo, No balance problems, No problem reported Heme: No see HPI, No abnormal bleeding/bruising, No clotting problems, No swollen lymph nodes, No night sweats, No problem reported Endo: No see HPI, No fatigue, No excessive thirst, No excessive urination, No problem reported Skin: No see HPI, No rash, No itch, No new/changing skin lesions, No color change, No bleeding, No problem reported Allergies Coded Allergies: Eggs or Egg-derived Products (Verified Allergy, Severe, HIVES, 12/05/17) As stated by patient Medications Current Inpatient Medications Medications (Trade) Dose Ordered Sig/Carlos Route Start Time Stop Time Status Last Admin Dose Admin Ioversol (Optiray 320) 100 ml UD PRN IV 12/04/17 23:00 12/08/17 22:59 Acetaminophen (Tylenol Tab) 650 mg Q4H PRN PO 12/05/17 03:00 01/04/18 02:59 Ondansetron HCl (Zofran Inj) 4 mg Q6H PRN IV 12/05/17 03:00 01/04/18 02:59 Nitroglycerin (Nitrostat Tab) 0.4 mg UD PRN SL 12/05/17 03:00 01/04/18 02:59 Amoxicillin/ Clavulanate Potassium (Augmentin Tab) 875 mg BIDM PO 12/05/17 07:30 12/07/17 07:29 12/05/17 08:38 875 MG Atorvastatin Calcium (Lipitor Tab) 20 mg DAILY PO 12/05/17 09:00 01/04/18 08:59 12/05/17 08:38 20 MG Hydrochlorothiazide (Hydrochlorothiazide Tab) 25 mg DAILY PO 12/05/17 09:00 01/04/18 08:59 12/05/17 08:37 25 MG Insulin Glargine (Lantus Solostar Pen) 30 units AMHS SC 12/05/17 09:00 01/04/18 08:59 12/05/17 08:37 30 UNITS Insulin Aspart (novoLOG ASPART) SLIDING SCALE If C... ACHS SC 12/05/17 07:00 01/04/18 06:59 12/05/17 08:36 7 UNITS Glucose (Glucose 40% Gel) 15-30 GRAMS 15 GRAMS... UD PRN PO 12/05/17 03:00 01/04/18 02:59 Glucose (Glucose Chew Tab) 4-8 Tablets 4 Tabl... UD PRN PO 12/05/17 03:00 01/04/18 02:59 Dextrose (Dextrose 50% 50ML Syringe) 25-50ML OF 50% DW IV FOR... UD PRN IV 12/05/17 03:00 01/04/18 02:59 Glucagon (Glucagon Inj) 1 mg UD PRN SQ 12/05/17 03:00 01/04/18 02:59 Physical Exam Vital Signs Past 12 Hours Date Time Temp Pulse Resp B/P (MAP) Pulse Ox O2 Delivery O2 Flow Rate FiO2 12/05/17 07:33 36.6 79 18 122/76 (91) 95 Room Air 12/05/17 04:01 36.5 108 20 136/89 94 Room Air 12/05/17 03:00 100 20 126/83 95 12/05/17 02:15 85 16 95/52 93 Room Air 12/05/17 01:39 81 12/05/17 00:47 94 16 142/77 93 Room Air 12/04/17 23:46 90 16 153/93 96 Room Air 12/04/17 22:15 93 Room Air 12/04/17 22:11 93 Room Air 12/04/17 22:09 120 19 92 12/04/17 22:02 109 12/04/17 22:01 134/95 12/04/17 21:58 145/94 Head: normocephalic, atraumatic ENMT: normal ENT inspection, hearing grossly normal Neck: supple, trachea midline, no masses, tender (tenderness upon palpating the L lateral side ) Lungs: Respiratory effort: no dyspnea, good air movement Auscultation: breath sounds normal, CTA except as noted, no wheezing, no rales/crackles, no rhonchi Cardiovascular: Apical Impulse: not displaced Heart Auscultation: RRR, normal S1, normal S2, no murmurs, no rubs, no gallops Peripheral Pulses: Radial Pulse: normal on the left, normal on the right Musculoskeletal: normal Extremities: no cyanosis, edema (pitting edema in both feet bilaterally) Neurologic: Gait & Station: normal gait, normal station Cranial Nerves: grossly intact Sensation: grossly intact reproducible chest pain when palpating the left sternal border Data Laboratory Results: Last 24 Hours Test 12/04/17 22:08 12/04/17 22:11 12/05/17 02:55 12/05/17 04:12 White Blood Count 7.90 K/uL Red Blood Count 4.90 M/uL Hemoglobin 13.8 g/dL Hematocrit 41.6 % Mean Corpuscular Volume 84.9 fL Mean Corpuscular Hemoglobin 28.2 pg Mean Corpuscular Hemoglobin Concent 33.2 g/dl Platelet Count 144 K/uL Mean Platelet Volume 10.7 fL Neutrophils (%) (Auto) 65.8 % Lymphocytes (%) (Auto) 21.9 % Monocytes (%) (Auto) 9.9 % Eosinophils (%) (Auto) 1.6 % Basophils (%) (Auto) 0.3 % Neutrophils # (Auto) 5.20 K/uL Lymphocytes # (Auto) 1.73 K/uL Monocytes # (Auto) 0.78 K/uL Eosinophils # (Auto) 0.13 K/uL Basophils # (Auto) 0.02 K/uL RDW Standard Deviation 38.7 fL RDW Coefficient of Variation 12.7 % Immature Granulocyte % (Auto) 0.5 % Immature Granulocyte # (Auto) 0.04 K/uL Sodium Level 137 mmol/L Potassium Level 3.4 mmol/L Chloride Level 100 mmol/L Carbon Dioxide Level 29 mmol/L Anion Gap 9.0 mmol/L Blood Urea Nitrogen 20 mg/dl Creatinine 0.80 mg/dl Est Creatinine Clear Calc Drug Dose 14.0 ml/min Estimated GFR () 95.5 Estimated GFR (Non- 82.4 BUN/Creatinine Ratio 25.1 Random Glucose 110 mg/dl Calcium Level 9.4 mg/dl Total Bilirubin 0.5 mg/dl Direct Bilirubin < 0.1 mg/dl Aspartate Amino Transf (AST/SGOT) 24 U/L Alanine Aminotransferase (ALT/SGPT) 38 U/L Alkaline Phosphatase 103 U/L Troponin I < 0.015 ng/ml < 0.015 ng/ml Total Protein 7.7 gm/dl Albumin 3.6 gm/dl Lipase 260 U/L Bedside D-Dimer > 450 ng/mlFEU Bedside Troponin I < 0.030 ng/ml Bedside Glucose 133 mg/dl Triglycerides Level 106 mg/dl Cholesterol Level 143 mg/dl HDL Cholesterol 45 mg/dl LDL Cholesterol, Calculated 77 mg/dl VLDL Cholesterol, Calculated 21 mg/dl Cholesterol/HDL Ratio 3.2 Test 12/05/17 04:13 12/05/17 06:56 Bedside Glucose 175 mg/dl Imaging: EKG: Telemetry reviewed: Assessment & Plan Mrs. Lantigua is a pleasant 57 year old female with significant PMH of hypertension, DM type 2, and dyslipidemia presented to [facility] ED yesterday evening with chest pain. The patient says yesterday was the first time that she experienced chest pain. She rates her chest pain as a 10/10 and describes it as a sensation of chest tightness/ chest pressure radiates to her neck, interscapular, and down her left arm. Her chest pain started yesterday morning and progressively worsened throughout the day. After dinner, her chest pain caused her SOB and PAYTON, which prompted her to seek medical help at [facility] ED. She did not experience any nausea, vomiting, diaphoresis, fever, chill since the onset of her chest pain. After giving 3 doses of Nitroglycerin in the ED, her chest pain got better but she still feels pain along the left sternal border. Her pain is reproducible upon palpating the left sternal border and with taking deep breaths, but it doesn't cause her any pain upon exertion and she rates her pain now as a 3/10. The patient denies SOB, PAYTON, orthopnea, PND, muscle weakness, paresthesia, syncope, dizziness, lightheadedness, lower extremity edema. 1. Atypical chest pain: Likely Musculoskeletal Origin but based on description of Sxs, Risk factors, FmHx -- recommend further evaluation - Troponin level negative x 3. - No ST changes in recent EKG readings. - Elevated D-Dimer. CXR and CTA for PE show no acute cardiopulmonary abnormalities. - Patient does not have a baseline stress test and echocardiogram. Plan for a stress echocardiogram today. 2. HTN: - Continue Hydrochlorothiazide. 3. DM2: - Continue Lantus and Novolog. - Monitor hemoglobin A1C. 4. Dyslipidemia: - Continue Lipitor. SNOW YusufS
[2017-12-05 10:40] VITALS: BP 153/94; PULSE 79; TEMP 36.8; O2SAT 95
--- NOTE | 2017-12-05 11:19 | Discharge Instructions ---
Discharge Instructions Date of Service Dec 05, 2017. Admission Reason for Admission: Chest Pain Discharge Discharge Diagnosis / Problem: Atypical chest pain Discharge Goals Goal(s): Decrease discomfort, Improve disease control Activity Recommendations Activity Limitations: per Instructions/Follow-up section . Instructions / Follow-Up Instructions / Follow-Up During this visit, you were evaluated for chest pain. Your heart tracings (EKGs ) and bloodwork did not indicate that you were experiencing a heart attack. You were evaluated by the cardiologists and underwent a stress test which did not show any evidence of heart-related ischemia that would cause your chest pain. Because of these findings we believe your chest pain was musculoskeletal in nature. Continue your home medications, including your HCTZ/triamterine, Novolog, lantus , and lipitor. Follow up with your primary care doctor within the next week. Return to the ED if you chest pain worsens or returns, for nausea, vomiting, sweating, heart palpitations, or fainting. Current Hospital Diet Patient's current hospital diet: Diabetes Type 2 Diet, AHA Diet (Heart Healthy) Discharge Diet Recommended Diet: AHA Diet (Heart Healthy), Diabetes Type 2 Diet Pending Studies Studies pending at discharge: no Laboratory Results Hemoglobin A1c Test 10/09/17 19:58 Range/Units Estimated Average Glucose 306 mg/dl Hemoglobin A1c 12.3 H 4.5-5.6 % Lipid Panel Test 12/05/17 04:12 Range/Units Triglycerides Level 106 0-150 mg/dl Cholesterol Level 143 0-200 mg/dl HDL Cholesterol 45 mg/dl Cholesterol/HDL Ratio 3.2 LDL Cholesterol, Calculated 77 mg/dl Medical Emergencies . Who to Call and When: Medical Emergencies: If at any time you feel your situation is an emergency, please call 911 immediately. . Non-Emergent Contact Non-Emergency issues call your: Primary Care Provider . . "Provider Documentation" section prepared by Aaliyah Castro. . VTE Core Measure Inpt VTE Proph given/why not?: SCD's
--- NOTE | 2017-12-05 13:01 | EXERCISE STRESS ECHO ---
*NOTICE TO RECEIVING REPUBLICAN AGENCY This information is strictly Confidential and protected under [place] law. [place] law prohibits you from making any further disclosure of this information unless further disclosure is expressly permitted by the written consent of the person to whom it pertains or is authorized by law. A general authorization for the release of medical or other information is not sufficient for this purpose. Hospital accepts no responsibility if the information is made available to any other person, INCLUDING THE PATIENT. Interpretation Summary * Name: AUGUST BLOOM Study Date: 12/05/2017 10:09 AM BP: 135/79 mmHg * Patient Location: C.2T\S\S238\S\2 HR: 79 * : 1960 (M/d/yyyy) Gender: Female Height: 62 in * Age: 57 yrs Ethnicity: CA Weight: 246 lb * Ordering Physician: Hardik Orlando * Referring Physician: Self, Referred * Performed By: Luna Barrios RDCS * * Reason For Study: CHEST PAIN * BSA: 2.1 m2 * -- Conclusions -- * 1. Normal stress echocardiogram at 7.7 Mets and a peak heart of greater than 100% predicted maximum. * 2. No exercise-induced chest pain. * 3. No EKG changes. * 4. Baseline echocardiogram notes normal left ventricular systolic function and mild left ventricular hypertrophy. Procedure Details * ECHOEX, CPT #47319 * A contrast injection of Definity was performed to improve assessment of LV function. * Contrast was injected into an intravenous site in the right arm. * One vial of Definity ultrasound contrast was diluted in normal saline to a total volume of 10 ml. A total of '4' ml of solution was administered during imaging. * Lot # [id number] of Definity utilized for procedure. * Expiration date 1 JAN 14. * The attending nurse who injected the contrast agent was DR PAOLA PASTOR MD, RN. Left Ventricle * The left ventricle is normal in size. * There is mild concentric left ventricular hypertrophy. * Ejection Fraction = 55-60%. * Left ventricular systolic function is normal. * Resting wall motion: Normal. Stress wall motion: Appropriate increase in Left ventricular systolic function and decrease in cavity size. No stress induced segmental wall motion abnormalities. Right Ventricle * The right ventricle is grossly normal size. * The right ventricular systolic function is normal as assessed by tricuspid annular plane systolic excursion (TAPSE) (normal >1.5 cm). Atria * Borderline left atrial enlargement. * Right atrial size is normal. * No ASD detected; PFO is not assessed. Mitral Valve * The mitral valve anatomy is normal. * There is no mitral valve stenosis. * There is trace mitral regurgitation. Tricuspid Valve * The tricuspid valve anatomy is normal. * There is no tricuspid stenosis. * Significant tricuspid regurgitation is absent. Aortic Valve * The aortic valve is trileaflet. * The aortic valve opens well. * Aortic valve sclerosis mild, without significant aortic valvular stenosis. * No aortic regurgitation is present. Pulmonic Valve * The pulmonary valve is not well seen, but the Doppler examination is normal without significant regurgitation or stenosis. Great Vessels * The aortic root is normal size. * The pulmonary is not well visualized. Pericardium * There is no pericardial effusion. Stress Parameters * Normal baseline electrocardiogram. * Stress ECG: No ST changes. No arrhythmias. * The stress portion of this study was personally supervised by the undersigned interpreting physician. * Rest heart rate was '79' BPM. * Rest blood pressure was '135/79' * Maximum heart rate achieved was 166 bpm. * Maximum heart rate was 101 % of maximum age-predicted heart rate. * Maximum blood pressure was '176/88' * Total exercise time was '6:31' * Maximum exercise MET level achieved was '7.70' METS * Maximum treadmill speed was '3.3' miles per hour. * Maximum treadmill elevation was '14.00'% grade. * Exercise was terminated due to 'ACHIEVING TARGET HR' Left Ventricular Diastolic Function * Grade I diastolic dysfunction, (abnormal relaxation pattern). MMode 2D Measurements and Calculations IVSd 1.2 cm IVSs 1.8 cm LVIDd 4.2 cm LVIDs 3.0 cm LVPWd 1.2 cm LVPWs 1.5 cm IVS/LVPW 0.96 FS 28.9 % EDV(Teich) 77.9 ml ESV(Teich) 34.4 ml EF(Teich) 55.9 % EDV(cubed) 73.3 ml ESV(cubed) 26.4 ml EF(cubed) 64.0 % % IVS thick 57.3 % % LVPW thick 26.6 % LV mass(C)d 172.1 grams LV mass(C)dI 82.4 grams/m\S\2 LV mass(C)s 187.6 grams LV mass(C)sI 89.9 grams/m\S\2 SV(Teich) 43.6 ml SI(Teich) 20.9 ml/m\S\2 SV(cubed) 46.9 ml SI(cubed) 22.5 ml/m\S\2 Ao root diam 3.8 cm Ao root area 11.3 cm\S\2 LA dimension 2.8 cm LA/Ao 0.75 Doppler Measurements and Calculations MV E max cecilia 54.3 cm/sec MV A max cecilia 68.4 cm/sec MV E/A 0.79 MV dec time 0.17 sec Ao V2 max 84.7 cm/sec Ao max PG 2.9 mmHg Ao max PG (full) 1.8 mmHg LV V1 max PG 1.1 mmHg LV V1 max 52.9 cm/sec
[2017-12-05 13:34] VITALS: BP 153/94; PULSE 79; TEMP 36.8; O2SAT 95
--- NOTE | 2017-12-05 23:18 | Discharge Summary ---
Discharge Summary Date of Service Dec 05, 2017. Discharge Summary Admission Date: Dec 05, 2017 at 03:10 Discharge Date: Dec 05, 2017 Discharge Disposition: Home Principal Diagnosis: Atypical chest pain Problems/Secondary Diagnoses: DMII, HLD, HTN Immunizations: Have You Had Influenza Vaccine: N/A History of Tetanus Vaccine?: Yes Tetanus Immunization Date: Jun 04, 2007 History of Pneumococcal: No History of Hepatitis B Vaccine: Unknown Procedures: Stress Echo Consultations: Cardiology Medication Reconciliation Continued Medications: Amoxicillin & Pot Clavulanate (Augmentin 875-125 mg) 1 Tab Tab 1 TAB PO Q12, #20 TAB PRESCRIBED 11/27/2017, TAKE DIRECTED UNTIL GONE Atorvastatin (Lipitor) 20 Mg Tab 20 MG PO DAILY, TAB Hydrochlorothiazide (Hctz) 25 Mg Tab 25 MG PO DAILY, TAB Insulin Glargine (Lantus Solostar) 100 Unit/Ml Inj 30 UNITS SC AMPM, PEN Insulin Lispro (Human) (Humalog Kwikpen) 100 Unit/Ml Inj 1 DOSE SC AC COVERAGE DIRECTED BY SLIDING SCALE Discharge Exam Review of Systems: Constitutional: No fever, No chills, No sweats, No weight loss, No weakness , No fatigue, No problem reported Respiratory: No cough, No sputum, No wheezing, No shortness of breath, No dyspnea on exertion, No dyspnea at rest, No hemoptysis, No problem reported Cardiovascular: + chest pain (musculoskeletal; reproducible on palpation) Abdomen: No pain, No nausea, No vomiting, No diarrhea, No constipation, No GI bleeding, No problem reported Physical Exam: General Appearance: WD/WN, no apparent distress Eyes: normal inspection, PERRL, EOMI, sclerae normal ENT: hearing grossly normal, pharynx normal Neck: supple, no adenopathy, no carotid bruits, trachea midline Respiratory/Chest: chest non-tender, lungs clear, normal breath sounds, no respiratory distress, no accessory muscle use Cardiovascular: regular rate, rhythm, no edema, no gallop, no murmur Abdomen / GI: normal bowel sounds, non tender, soft Extremities: normal inspection, no calf tenderness, normal capillary refill , normal range of motion, + pedal edema (1+ BL), + pertinent finding ( Tenderness to palpation of anterior left chest and left side of neck) 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 The patient stated she was having a substernal pressure like sensation that began when sitting at work yesterday. She states it was initially 3-4/10 but continued to progress. It began to radiate to her interscapular region, neck, and left arm. The pain continued to progress until she came into the emergency department. She received 3 doses of nitroglycerin at which time her pain resolved. Please see below for treatment in-house. 1) Chest Pain - Pain likely MSK/radicular from neck - EKG - NSR with no ST changes - CXR and CTA for PE performed as D-dimer was 450. Showed no acute cardiopulmonary abnormalities - Troponin < 0.015 x3 - Fasting lipid panel, within normal limits - Echo: * 1. Normal stress echocardiogram at 7.7 Mets and a peak heart of greater than 100% predicted maximum. * 2. No exercise-induced chest pain. * 3. No EKG changes. * 4. Baseline echocardiogram notes normal left ventricular systolic function and mild left ventricular hypertrophy. 2) Diabetes Mellitus - Continue home Lantus - Optimize control - HbA1c last obtained in Sep 2017, was 12.3 3) HLD - Fasting Lipids: TChol 143, HDL 45, LDL 77, Tri 106 - Continue home statin 4) Hypertension - Continue home HCTZ/ Triamterene Total Time Spent: Greater than 30 minutes This includes examination of the patient, discharge planning, medication reconciliation, and communication with other providers. Discharge Instructions Please refer to the electronic Patient Visit Report (Discharge Instructions) for additional information. Additional Copies To Kaylan Suero, Resident Tracking Resident Involvement: Resident Care Provided Care Provided: Adult Hospital Medicine Reviewed: Pt Seen/Exam by Me History no more chest pain. pain mostly on left upper chest and shoulder Constitutional: denies: fever Respiratory: negative: short of breath Cardiovascular: denies chest pain General Appearance: no apparent distress Respiratory: lungs clear, no respiratory distress Cardiovascular: regular rate, rhythm Neurologic/Psychiatric: alert, oriented x 3 Skin Characteristics: warm/dry Assessment/Plan Resident Physician Supervision Note: I independently interviewed and examined the patient and verified the moseley history and physical, reviewed labs and image studies, discussed the case with the resident Dr. Castro and agree with the findings and care plan. Time spent in discharge 35 min
== END 2017-12-05 13:42 | disposition home or self-care (01) | DRG 313 ==
LOC: C.EDB 21:09 → C.2T 12-05 03:10 → ENRESERV 12-05 03:15
PROVIDERS: ADMIT Student in an Organized Health Care Education/Training Program; ATTEND Family Medicine
DX: R07.2 Precordial pain (principal); E11.9 Type 2 diabetes mellitus without complications; E78.5 Hyperlipidemia, unspecified; I10 Essential (primary) hypertension; Z79.4 Long term (current) use of insulin; Z79.899 Other long term (current) drug therapy; Z83.3 Family history of diabetes mellitus

== ENCOUNTER → 2017-12-12 | Outpatient (CLI) | payer OTHER ==
[~2017-12-12] MED LIST changes: -CHOL2000 PO; -FURO-85 PO; -LISI10TA PO
--- NOTE | 2017-12-12 15:08 | MAMMOGRAPHY REPORT ---
BILATERAL DIGITAL SCREENING MAMMOGRAM TOMOSYNTHESIS WITH CAD: 12/12/2017 CLINICAL HISTORY: Routine screening examination. TECHNIQUE: Breast tomosynthesis in addition to standard 2D mammography was performed. Current study was also evaluated with a Computer Aided Detection (CAD) system. COMPARISON: Comparison is made to exams dated: 11/29/2011 mammogram, 11/23/2010 mammogram, 10/06/2009 mammogram - [facility], 09/09/2008, 09/04/2007, and 06/07/2005 mammogram - [facility]. BREAST COMPOSITION: There are scattered areas of fibroglandular density in both breasts. FINDINGS: There is a newly visualized 10 mm focal asymmetry versus mass in the upper outer anterior left breast, for which additional targeted ultrasound and possible additional mammographic views are recommended. There are mild vascular calcifications in the breasts. No other suspicious mass, architectural distor tion or cluster of microcalcifications is seen. IMPRESSION: ACR BI-RADS CATEGORY 0: INCOMPLETE EVALUATION: NEED ADDITIONAL IMAGING EVALUATION The newly visualized 10 mm focal asymmetry versus mass in the left upper outer breast needs additiona l evaluation. The patient will be called to schedule an appointment. Approximately 10% of breast cancers are not detected with mammography. A negative mammographic report should not delay biopsy if a clinically suggestive mass is present. Gail Powers M.D. ay/:12/12/2017 10:08:14 Catering Chef: Deepika PEDRAZA)(Mal), [facility] letter sent: Addl Imaging 0 BI-RADS Code: ACR BI-RADS Category 0: Incomplete Evaluation: Need Additional Imaging Evaluation
== END | disposition home or self-care (01) ==
LOC: C.MAMM 09:27
PROVIDERS: ATTEND Family Medicine
DX: Z12.31 Encounter for screening mammogram for malignant neoplasm of breast (principal); N64.89 Other specified disorders of breast

== ENCOUNTER → 2017-12-19 | Outpatient (CLI) | payer OTHER ==
--- NOTE | 2017-12-19 15:42 | MAMMOGRAPHY REPORT ---
ULTRASOUND OF LEFT BREAST: 12/19/2017 CLINICAL HISTORY: 57-year-old woman called back from screening mammography for a 10 mm focal asymmetr y in the upper outer middle to anterior left breast. Family history of breast cancer = mother. COMPARISON: Comparison is made to exams dated: 12/11/2011 ultrasound, 12/11/2011 mammogram, 11/29/2011 m ammogram, 11/23/2010 mammogram, 10/06/2009 mammogram - [facility], and 09/09/2008. FINDINGS: Targeted ultrasound was performed in the left upper outer quadrant to assess for the 10 x 11 x 9 mm circumscribed mammographic mass. In the 1:00 axis, 4 cm from the nipple, there is a lobula analia and circumscribed nearly anechoic cystic appearing mass measuring 10.1 x 10.9 x 5.2 mm. This cor relates well in size, shape and location as the mammographic mass and could represent a simple cyst w ith single internal septation versus 2 abutting cysts. No significant posterior acoustic enhancement appreciated, although this could be due to the depth of the lesion. Nevertheless, a short interval follow-up left diagnostic tomosynthesis mammogram and repeat targeted ultrasound is recommended to en sure stability in 6 months. IMPRESSION: ACR-BI-RADS CATEGORY 3: PROBABLY BENIGN - FOLLOW-UP RECOMMENDED There is a probable cyst measuring 10 x 11 mm in the 1:00 left breast, 4 cm from the nipple on ultras ound, thought to correlate with the well circumscribed mammographic mass. Given that the suspected c yst does not meet all of the criteria for a benign simple cyst, and the mass was newly visualized dejon mographically, a short interval follow-up left diagnostic tomosynthesis mammogram and repeat targeted ultrasound is recommended to ensure stability in 6 months. These results and recommendations were discussed with the patient at the time of the exam. Gail Powers M.D. ay/:12/19/2017 10:07:[address] Freight: Dr. Gail Powers, [facility] letter sent: Follow Up Recommended 3 BI-RADS Code: ACR-BI-RADS Category 3: Probably Benign
== END | disposition home or self-care (01) ==
LOC: C.MAMM 09:10
PROVIDERS: ATTEND Family Medicine
DX: N64.9 Disorder of breast, unspecified (principal)

== ENCOUNTER → 2018-01-24 | Outpatient (CLI) | payer OTHER ==
[2018-01-24 13:06] LABS: HEMOGLOBIN A1C 7.3 % (4.5-5.6)
[2018-01-24 13:14] LABS: BLOOD UREA NITROGEN 22 mg/dl (7-18); CALCIUM 9.3 mg/dl (8.5-10.1); CARBON DIOXIDE 30 mmol/L (21-32); CREATININE 0.99 mg/dl (0.60-1.20); GLUCOSE 140 mg/dl (70-99); POTASSIUM 3.7 mmol/L (3.5-5.1); SODIUM 137 mmol/L (136-145)
== END | disposition home or self-care (01) ==
LOC: C.LABPBG 08:24
PROVIDERS: ATTEND Family Medicine
DX: I10 Essential (primary) hypertension (principal); E11.9 Type 2 diabetes mellitus without complications

== ENCOUNTER → 2018-02-25 | Outpatient (CLI) | payer OTHER ==
[2018-02-25 13:11] LABS: BASO % 0.4 %; BASO ABS # 0.03 K/uL (0-0.2); EOS % 2.9 %; EOS ABS # 0.24 K/uL (0-0.5); HEMATOCRIT 42.9 % (37-47); HEMOGLOBIN 14.8 g/dL (12.0-16.0); IG# 0.04 K/uL (0.00-0.02); LYMPH % 25.5 %; LYMPH ABS # 2.09 K/uL (1.2-3.4); MEAN CELL VOLUME 84.6 fL (80-100); MEAN CORPUSCULAR HEMOGLOBIN 29.2 pg (25-34); MEAN CORPUSCULAR HGB CONC 34.5 g/dl (32-36); MEAN PLATELET VOLUME 10.2 fL (7.4-10.4); MONO ABS # 0.57 K/uL (0.11-0.59); NEUT % 63.7 %; NEUT ABS # 5.22 K/uL (1.4-6.5); PLATELET COUNT 245 K/uL (130-400); RED CELL DISTRIBUTION WIDTH CV 12.9 % (11.5-14.5); RED CELL DISTRIBUTION WIDTH SD 39.2 fL (36.4-46.3); WHITE BLOOD COUNT 8.19 K/uL (4.8-10.8)
[2018-02-26 11:49] LABS: MICROSOMAL AB <1 IU/ML (<9)
== END | disposition home or self-care (01) ==
LOC: C.LABPBG 10:29
PROVIDERS: ATTEND Family Medicine
DX: R53.83 Other fatigue (principal)

== ENCOUNTER → 2018-06-19 | Outpatient (CLI) | payer OTHER ==
[~2018-06-19] MED LIST changes: +CHOL2000 PO; +FURO-85 PO; +LISI10TA PO
--- NOTE | 2018-06-20 07:57 | MAMMOGRAPHY REPORT ---
UNILATERAL LEFT DIGITAL DIAGNOSTIC MAMMOGRAM TOMOSYNTHESIS WITH CAD AND TARGETED LEFT ULTRASOUND: 05/27 CLINICAL HISTORY: Six-month follow-up of left breast mass. The patient reports no new lumps or other complaints. TECHNIQUE: The study was acquired using full field digital technology and interpreted from soft copy. Breast tomosynthesis in addition to standard 2D mammography was performed. Current study was also ev aluated with a Computer Aided Detection (CAD) system. Left CC and MLO 2D and tomosynthesis images we re obtained. COMPARISON: Comparison is made to exams dated: 12/12/2017 mammogram, 12/19/2017 ultrasound, 11/29/2011 m ammogram, 11/23/2010 mammogram, 10/06/2009 mammogram - [facility], and 09/09/2008. BREAST COMPOSITION: There are scattered areas of fibroglandular density in left breast. FINDINGS: Again noted is a low-density round partially circumscribed and partially obscured 12 mm mas s within the left upper outer quadrant. The mass is stable compared to the November 2017 exam. The r emainder of the left breast is stable compared to prior exams, without suspicious masses, calcificati ons, or areas of architectural distortion noted. Targeted ultrasound was performed of the left breast in the region of the mammographic mass. In the left breast at 1:00, approximately 4 cm from the nipple, again noted is a circumscribed anechoic mass with a thin internal septation, measuring 11 x 4 x 10 mm. The mass is stable sonographically and ma mmographically compared to the November 2017 exam and is benign and compatible with a cyst. IMPRESSION: ACR BI-RADS CATEGORY 2: BENIGN, ULTRASOUND ACR BI-RADS CATEGORY 2: BENIGN The left 1:00 breast mass is stable compared to the November 2017 exam mammographically and sonographi carlos alberto, and is benign and compatible with a cyst. There is no mammographic or sonographic evidence of malignancy. Return to annual mammogram screening schedule is recommended, due November 2018. The patient has been verbally notified of the results. Some breast cancers are not detected with mammography. A negative mammographic report should not reba y biopsy if a clinically suggestive mass is present. Lynnette Lawler M.D. ah/:06/19/2018 08:41:43 Reproductive Surgeon: RT Bello(R)(M), [facility]; Lynnette Lawler MD, [facility] letter sent: Normal 11/27 OVERALL STUDY BIRADS: 2 Benign
== END | disposition home or self-care (01) ==
LOC: C.MAMM 08:04
PROVIDERS: ATTEND Family Medicine
DX: N63.21 Unspecified lump in the left breast, upper outer quadrant (principal)

== ENCOUNTER → 2018-06-28 | Outpatient (CLI) | payer OTHER ==
[~2018-06-28] MED LIST changes: -AMOX875T PO; -HYDR25TA4 PO
[2018-06-28 13:48] LABS: BLOOD UREA NITROGEN 15 mg/dl (7-18); CALCIUM 9.1 mg/dl (8.5-10.1); CARBON DIOXIDE 26 mmol/L (21-32); CREATININE 0.94 mg/dl (0.60-1.20); GLUCOSE 179 mg/dl (70-99); POTASSIUM 3.7 mmol/L (3.5-5.1); SODIUM 135 mmol/L (136-145)
== END | disposition home or self-care (01) ==
LOC: C.LABPBG 07:51
PROVIDERS: ATTEND Family Medicine
DX: R60.9 Edema, unspecified (principal); I10 Essential (primary) hypertension; R53.83 Other fatigue